=== PATIENT | female | born 1985 | race Caucasian/White ===

== ENCOUNTER 2022-05-01 09:25 | Inpatient (IN) | payer OTHER ==
[~2022-05-01] VITALS: Ht 160 cm; Wt 73.9 kg
[2022-05-01] MEDS ORDERED: DINOPROSTONE 10 MG SUPP VG ONE (10:00)
[2022-05-01] MEDS ORDERED: TERBUTALINE SULFATE 1 MG/ML VIAL SUBCUT ONE (10:00)
[2022-05-01] MEDS ORDERED: LR 1,000 ML IV SCH (10:00)
[2022-05-01] MEDS ORDERED: NALBUPHINE HCL 10 MG/ML AMP IVP PRN (10:00)
[2022-05-01] MEDS ORDERED: OXYTOCIN/0.9 % SODIUM CHLORIDE 1,000 ML IV SCH (10:00)
[2022-05-01 10:03] VITALS: BP_SYST 119
[2022-05-01 10:29] LABS: BASOPHILS % (AUTO) 0.4 % (0.0-2.0); EOSINOPHILS # (AUTO) 0.1 K/uL (0.0-0.4); EOSINOPHILS % (AUTO) 1.1 % (0.0-4.0); HEMATOCRIT 33.5 % (36-48); HEMOGLOBIN 10.9 g/dL (12.0-16.0); LYMPHOCYTES # (AUTO) 1.7 K/uL (1.0-5.5); LYMPHOCYTES % (AUTO) 27.9 % (20.5-51.5); MEAN CORPUSCULAR HEMOGLOBIN 27 pg (27-31); MEAN CORPUSCULAR HGB CONC 33 % (32-36); MEAN CORPUSCULAR VOLUME 82 fL (79.0-98.0); MONOCYTES # (AUTO) 0.5 K/uL (0.0-1.0); NEUTROPHILS # (AUTO) 3.7 K/uL (1.8-7.7); NEUTROPHILS % (AUTO) 62.6 % (40.0-70.0); PLATELET COUNT (AUTO) 222 K/uL (130-430); RED BLOOD CELL COUNT(AUTO) 4.09 MIL/uL (4.2-6.2); RED CELL DISTRIBUTION WIDTH 14.8 % (9.0-15.0)
[2022-05-01] MEDS ORDERED: CALCIUM CARBONATE 500 MG/ TAB.CHEW PO PRN (18:00)
[2022-05-02] MEDS ORDERED: fentaNYL CITRATE/PF 100 MCG/2 ML AMP ONE (03:12)
[2022-05-02] MEDS ORDERED: ROPIVACAINE HCL/PF 0.2% 200 ML ONE (03:12)
[2022-05-02] MEDS ORDERED: LR 500 ML IV ONE (04:00)
[2022-05-02] MEDS ORDERED: FENT2mCg/mL-ROPIVA0.2%/NS EPID 200 ML EP SCH (04:00)
[2022-05-02] MEDS ORDERED: NALOXONE HCL 0.4 MG/ML AMP (NARCAN) ONE (06:18)
[2022-05-02] MEDS ORDERED: LIDOCAINE PF 1% 30ML(POUR BTL) INJ ONE (06:18)
[2022-05-02] MEDS ORDERED: LIGHT MINERAL OIL 10 ML VIAL MC ONE (06:18)
[2022-05-02] MEDS ORDERED: HYDROCORTISONE 0.5% CREAM 28.4 GM CREAM.GM. TP PRN (09:15)
[2022-05-02] MEDS ORDERED: DERMOPLAST SPRAY TP PRN (09:15)
[2022-05-02] MEDS ORDERED: OXYTOCIN/0.9 % SODIUM CHLORIDE 1,000 ML IV SCH (09:15)
[2022-05-02] MEDS ORDERED: ANUSOL 1 EA SUPP.RECT (PREPARATION H) RC PRN (09:15)
[2022-05-02] MEDS ORDERED: OXYTOCIN/0.9 % SODIUM CHLORIDE 1,000 ML IV ONE (09:15)
[2022-05-02] MEDS ORDERED: LANOLIN 7 GM OINT. TP PRN (09:15)
[2022-05-02] MEDS ORDERED: METHYLERGONOVINE MALEATE 0.2 MG TABLET PO PRN (09:15)
[2022-05-02] MEDS ORDERED: OXYCODONE/ACETAMINOPHEN 5-325 TABLET PO PRN ×2 (09:15)
[2022-05-02] MEDS ORDERED: WITCH HAZEL LEAF 1 MED.PAD MED.PAD TP PRN (09:15)
[2022-05-02] MEDS: IBUPROFEN 800 MG TABLET PO PRN ×3 (12:28→23:59)
[2022-05-02] MEDS: SENNOSIDES/DOCUSATE SODIUM 1 TAB TABLET(SENOKOT-S) PO SCH (20:49)
[2022-05-02] MEDS ORDERED: TEMAZEPAM 15 MG CAPSULE PO PRN (21:00)
[2022-05-03] MEDS: IBUPROFEN 800 MG TABLET PO PRN ×2 (05:50→12:27)
[2022-05-03 07:46] LABS: HEMATOCRIT 26.7 % (36-48); HEMOGLOBIN 8.7 g/dL (12.0-16.0)
[2022-05-03] MEDS: DOCUSATE SODIUM 100 MG CAPSULE PO SCH (09:40)
[2022-05-03] MEDS: SENNOSIDES/DOCUSATE SODIUM 1 TAB TABLET(SENOKOT-S) PO SCH (20:53)
[2022-05-04] MEDS: DOCUSATE SODIUM 100 MG CAPSULE PO SCH (09:15)
== END 2022-05-04 12:05 | disposition home or self-care (01) | DRG 807 ==
LOC: SPU 09:25
PROVIDERS: ADMIT Obstetrics & Gynecology; ATTEND Obstetrics & Gynecology
PROC: 10D07Z6 Extraction of Products of Conception, Vacuum, Via Natural or Artificial Opening (ICD-10-PCS; principal; 2022-05-02)
PROC: 3E0P7VZ Introduction of Hormone into Female Reproductive, Via Natural or Artificial Opening (ICD-10-PCS; 2022-05-02)
PROC: 3E0R3BZ Introduction of Anesthetic Agent into Spinal Canal, Percutaneous Approach (ICD-10-PCS; 2022-05-02)
PROC: 00HU33Z Insertion of Infusion Device into Spinal Canal, Percutaneous Approach (ICD-10-PCS; 2022-05-02)
DX: O48.0 Post-term pregnancy (principal); Z37.0 Single live birth; Z3A.40 40 weeks gestation of pregnancy; O77.0 Labor and delivery complicated by meconium in amniotic fluid; Z20.822 Contact with and (suspected) exposure to COVID-19
CPT/HCPCS: 36415; 81002; 82947; 85018; 85025; 86592; 86886; 86900; 86901; 94760; J2001; J2300; J2310; J2590; J3010